=== PATIENT | female | born 1970 | race Caucasian/White ===

== ENCOUNTER 2022-03-31 18:02 | Emergency (ER) | payer OTHER ==
[~2022-03-31 18:02] MED LIST: ZOFRAN4 MG PO
[2022-03-31 18:53] LABS: RED BLOOD COUNT 4.09 M/UL (4.00-5.10); WHITE BLOOD COUNT 6.9 K/UL (4.5-11.0)
[2022-03-31] MEDS ORDERED: TRAMADOL HCL50 MG PO (21:20)
== END 2022-03-31 21:35 | disposition home or self-care (01) ==
LOC: ER1 18:02
PROVIDERS: Nurse Practitioner
DX: R10.9 Unspecified abdominal pain (principal); G89.29 Other chronic pain; N28.9 Disorder of kidney and ureter, unspecified; R10.814 Left lower quadrant abdominal tenderness
CPT/HCPCS: 80053; 80076; 81001; 83605; 83690; 85025; 96361; 96374; 96375; 99284; J1170; J1885; Q9967